=== PATIENT | male | born 2000 | race Caucasian/White ===

== ENCOUNTER 2025-11-17 23:22 | Emergency (ER) | payer SELFPAY ==
[~2025-11-17] VITALS: Ht 162.6 cm; Wt 56.0 kg
[2025-11-17 23:55] VITALS: O2SAT 98
[2025-11-18 00:03] LABS: BASOPHILS % 0.9 % (0.0-2.0); EOSINOPHILS % 1.5 % (0.0-5.0); HEMATOCRIT. 42.1 % (42.0-52.0); HEMOGLOBIN. 14.0 g/dL (14.0-18.0); LYMPHOCYTES % 25.2 % (20.0-50.0); MEAN PLATELET VOLUME 8.1 fl (7.4-10.4); MONOCYTES % 6.0 % (2.0-8.0); NEUTROPHILS % 66.4 % (40.0-76.0); PLATELET 355 x1000/uL (130-400); RED BLOOD CELL COUNT 4.70 mill/uL (4.7-6.1); RED CELL DISTRIBUTION WIDTH 12.7 % (11.6-14.6)
[2025-11-18 00:16] LABS: CREATININE 1.0 mg/dL (0.6-1.3); UREA NITROGEN BLOOD 13 mg/dL (9-23)
[2025-11-18 00:31] LABS: INR 1.0
[2025-11-18 00:33] LABS: ETHANOL BLOOD < 10 mg/dL (<10)
[2025-11-18 00:34] LABS: PROTEIN TOTAL 6.7 g/dL (6.0-8.3); TROPONIN I HIGH SENSITIVITY < 4 ng/L (3.0-53)
[2025-11-18 00:35] LABS: ASPARTATE AMINOTRANSFERASE 15 IU/L (<34); BILIRUBIN DIRECT < 0.1 mg/dL (<=3.0); BILIRUBIN TOTAL 0.4 mg/dL (0.1-1.0); PHOSPHORUS 3.1 mg/dL (2.5-4.9)
[2025-11-18 00:50] LABS: BG BASE EXCESS 1.0 mmol/L (-2.0-3.0); BG CARBOXYHEMOGLOBIN 2.0 % (0.5-1.5); BG DEOXYHEMOGLOBIN 2.7 % (0.0-5.0); BG HCO3 ACT 24.7 mmol/L (21.0-28.0); BG METHEMOGLOBIN 0.2 % (0.5-1.5); BG OXYGEN SATURATION 97.2 % (94.0-98.0); BG OXYHEMOGLOBIN 95.1 % (94.0-98.0); BG PCO2 36.7 mmHg (35.0-48.0); BG PH 7.446 (7.350-7.450); BG PO2 90.8 mmHg (83.0-108.0); BG SAMPLE SITE RIGHT RADIAL; BG TOTAL HEMOGLOBIN 14.7 g/dL (13.5-17.5); BG VENT MODE ROOM AIR
[2025-11-18] MEDS ORDERED: MAGN400C MT (01:36)
[2025-11-18] MEDS: MAGNESIUM OXIDE 400MG TABLET PO SCH (01:42)
[2025-11-18 01:48] VITALS: BP 110/76; PULSE 87; RESP 14; TEMP 36.6; O2SAT 99
== END 2025-11-18 01:53 | disposition home or self-care (01) ==
LOC: ER 23:22 → CMPBEDREQ 11-18 11:39
DX: R55 Syncope and collapse (principal); E83.42 Hypomagnesemia; F31.9 Bipolar disorder, unspecified; F20.9 Schizophrenia, unspecified; R06.02 Shortness of breath
CPT/HCPCS: 36415; 36600; 71045; 80048; 80076; 80320; 82375; 82805; 83735; 83880; 84100; 84484; 85025; 93005; 99285; G0480